=== PATIENT | male | born 1970 | race Caucasian/White ===

== ENCOUNTER 2024-11-18 14:37 | Emergency (ER) | payer OTHER, SELFPAY ==
[2024-11-18 14:49] VITALS: BP 201/93
[2024-11-18 15:00] VITALS: BP 165/91
[2024-11-18 15:21] LABS: % Basophils 0.5 % (0-2); % Eosinophils 1.3 % (0-6); % Immature Granulocytes 0.4 % (0-0.5); % Lymphocytes 21.2 % (20.5-51.1); % Monocytes 4.5 % (1.7-9.3); % Neutrophils 72.1 % (42.2-75.2); Absolute Basophils 0.1 10^3/uL (0-0.2); Absolute Eosinophils 0.2 10^3/uL (0-0.7); Absolute Immature Granulocytes 0.1 10^3/uL (0-0.05); Absolute Lymphocytes 2.7 10^3/uL (1.2-3.4); Absolute Monocytes 0.6 10^3/uL (0.1-0.6); Absolute Neutrophils 9.3 10^3/uL (1.4-6.5); Hematocrit 43.9 % (39.0-52.0); Hemoglobin 14.6 g/dL (13.0-18.0); Mean Corp Hgb Conc. 33.3 g/dL (33.0-37.0); Mean Corpuscular Hgb 31.1 pg (27.0-31.0); Mean Corpuscular Volume 93.4 fL (80.0-94.0); Mean Platelet Volume 9.2 fL (7.4-10.4); Nucleated Red Blood Cells % 0 % (-); Platelet Count 321 10^3/uL (130-400); Red Cell Dist. Width 13.1 % (11.5-14.5); White Blood Cell Count 12.9 10^3/uL (4.8-10.8)
[2024-11-18 15:38] LABS: Blood Urea Nitrogen 26 mg/dl (9-20); Calcium 9.9 mg/dl (8.4-10.2); Carbon Dioxide 24 mmol/L (22-30); Chloride 103 mmol/L (98-107); Glucose 142 mg/dl (70-99); Potassium 4.1 mmol/L (3.5-5.1); Sodium 136 mmol/L (135-145); eGFR > 60.00
[2024-11-18] MEDS: DUONEB 3 ML INH (15:45)
[2024-11-18] MEDS: DECADRON 10 MG IV (15:45)
[2024-11-18 15:47] LABS: Troponin I 0.014 ng/ml
--- NOTE | 2024-11-18 16:09 | ED.GENMED ---
History of Present Illness
General
Chief Complaint: Breathing Problem
Source: patient
Exam Limitations: none
Time Seen by Provider: 11/18/24 15:36
Nursing documentation reviewed up to this point in time: agreed with
History of Present Illness
History of Present Illness:
54-year-old male was cleaning concrete with an acid wash for about an hour developed shortness of breath pressure into his chest some wheezing, felt better when he went outside, no fever chills nondrinker non-smoker no exposure to this medication
before has history of reflux takes omeprazole
Past History
Past History
ED Past Medical History: GERD
Social History
Tobacco: Non-smoker
Alcohol: None
Drug: None
Personal:
Living: with family
Employment: Employed
Review of Systems
Review of Systems
All Other Systems: Not applicable
Constitutional: Denies fever or fatigue
Respiratory: Reports cough and trouble breathing
Cardiac: Reports chest pain and diaphoresis
ABD/GI: Reports no symptoms; Denies abdominal pain or vomiting
Skin: Reports no symptoms
Neurological: Reports no symptoms
Phy Exam
Physical Exam
Physical Exam:
Physical Exam
General: 54 male coughing
Neck: No jaundice
Heart: Regular
Lungs: Wheeze bilaterally
Abdomen: Nontender
Neuro: alert and oriented. no focal neurological deficits
Skin: no rash
Psychiatric: well kept. interactive and cooperative
Extremities: no edema. no calf tenderness.
Scores
Heart Failure Risk
Heart Failure Risk Score: Not Applicable
Course
Orders/Labs/Results
Orders:
Orders
11/18/24 14:40
ECG [Electrocardiogram (*1)] Urgent
Reason for Study: Other
Other Reason for Exam: diaphoretic
EKG- Treatment ONCE
11/18/24 14:54
CR Chest - 2 Views Urgent
Comment:
Reason For Exam: chest tightness
11/18/24 15:11
Basic Metabolic Panel Urgent
Complete Blood Count/With Diff Urgent
Troponin I Urgent
11/18/24 15:40
Dexamethasone Sod Phosphate [Decadron] 10 mg IV NOW STA
Ipratropium/Albuterol Sulfate [Duoneb] 3 ml INH R NOW STA
Abnormal Lab Results
11/18/24
15:11
WBC 12.9 H 10^3/uL
(4.8-10.8)
MCH 31.1 H pg
(27.0-31.0)
Abs Immat Gran (auto) 0.1 H 10^3/uL
(0-0.05)
Absolute Neuts (auto) 9.3 H 10^3/uL
(1.4-6.5)
BUN 26 H mg/dl
(9-20)
Glucose 142 H mg/dl
(70-99)
11/18/24 15:11
11/18/24 15:11
Vital Signs
Initial and Last Documented VS:
Initial Vital Signs
Temp Pulse Resp BP Pulse Ox
98.3 F 78 18 201/93 99
11/18/24 14:49 11/18/24 14:49 11/18/24 14:49 11/18/24 14:49 11/18/24 14:49
Last Documented Vital Signs
Temp Pulse Resp BP Pulse Ox
98.3 F 69 13 165/91 100
11/18/24 14:49 11/18/24 16:00 11/18/24 16:00 11/18/24 15:00 11/18/24 16:00
MDM/Problems Addressed
Differential Diagnosis Includes:
Inhalation injury, bronchitis, doubt ACS
MDM/Problems Addressed:
Cough shortness of breath
*Radiology
Radiology exam reviewed: preliminary read by ED provider
*Pulse Oximetry
Patient hypoxic: no
*EKG
Interpreted by ED Provider?: Yes
Comparison EKG: no comparison EKG present
Heart Rate: 78
Rate: normal
Rhythm: sinus
Ischemia: no ischemia
*Shower Enclosure Installer Interpretation
Rate: normal
Interpretation: normal
Heart Rate: 78
Rhythm: sinus
*Critical Care Note
Total Time (30-74mins, 75-104mins- exclusive of procedures): Not Applicable
Update Note
Update Note:
Update chest x-ray noted labs noted patient feeling better
ED Attending Note
-
Portions of this chart may have been created with voice recognition software.� Occasional wrong word or��sound alike� substitutions may have occurred due to the inherent limitations of voice recognition software.
Discharge Plan
Departure
Patient Disposition: Home (Routine Discharge)
Date of Disposition: 11/18/24
Time of Disposition: 17:33
Patient with high blood pressure during this ER visit?: No
Condition: Good
Discharge Problem:
Inhalation injury due to chemical
Instructions: Acute bronchitis in adults, Smoke Inhalation
Prescriptions:
New
methylprednisolone [Medrol (Gildardo)] 4 mg tablets,dose pack
See Rx Instructions .ROUTE .COMPLEX Qty: 21 0RF
Rx Instructions:
for 6 days
albuterol sulfate 90 mcg/actuation HFA aerosol inhaler
2 inh inhalation QID PRN (Reason: shortness of breath or wheezing) Qty: 8.5 2RF
Referrals:
UNKNOWN - PT DOES,NOT KNOW [Family Provider] -
Activity Restrictions/Additional Instructions:
Albuterol 2 puffs every 4 hours, prednisone pack as prescribed return to the ER for worsening
Interventions
Interventions:
*Risk Screen - Suicide Last Done: 11/18/24 15:09
*General Assessment Last Done: 11/18/24 14:49
*Neglect/Abuse Screening Last Done: 11/18/24 15:09
ED- Fall Risk Assessment Last Done: 11/18/24 15:08
*ED COVID-19 Vaccine History Last Done: 11/18/24 15:09
ED- Cardiac Assessment Last Done: 11/18/24 15:08
ED- Pulmonary Assessment Last Done: 11/18/24 15:08
Discharge Date and Time
Print Language: ANGOLAN
== END 2024-11-18 17:44 | disposition home or self-care (01) ==
LOC: EMR 14:37
PROVIDERS: Emergency Medicine; EMERGENCY PHYSICIAN Emergency Medicine
DX: T59.91XA Toxic effect of unspecified gases, fumes and vapors, accidental (unintentional), initial encounter (principal); Y92.9 Unspecified place or not applicable; K21.9 Gastro-esophageal reflux disease without esophagitis
CPT/HCPCS: 99283; 94640; 96374; 71046; 80048; 84484; 85025; 93005

== ENCOUNTER 2025-05-28 10:09 | Emergency (ER) | payer OTHER, SELFPAY ==
[2025-05-28 10:10] VITALS: BP 160/99
--- NOTE | 2025-05-28 11:37 | ED.GENMED ---
History of Present Illness
General
Chief Complaint: Skin Problem
Source: patient
Exam Limitations: none
Time Seen by Provider: 05/28/25 11:17
Nursing documentation reviewed up to this point in time: agreed with
History of Present Illness
History of Present Illness:
Patient presents to ED secondary to concern for infection in his left forearm. Patient states that 2 days ago, he was out in the backyard, cleaning up branches and leaves, when he felt sharp sting in his left forearm. Patient did not remove any
insects nor did he see one after initial sting. Since then, pain has resolved and has become itchy. However, while he was at home this morning, he suddenly had a sensation of dizziness with nausea, concerned that he may have been bitten by spider
or other insects, causing him to be ill. He has been keeping the wound clean with soap and water, and has been applying Neosporin. Denies swelling. Denies open drainage. Denies redness. Denies previous history of skin infection. Patient's
medical history is significant for MA in 2023, for which he is taking aspirin, Plavix, and Lipitor.
Past History
Past History
ED Past Medical History: GERD
Social History
Tobacco: Non-smoker
Alcohol: None
Drug: None
Personal:
Living: with family
Employment: Employed
Review of Systems
Review of Systems
Allergies reviewed?: Yes
All Other Systems: ROS reviewed and negative except as documented in HPI and ROS
Constitutional: Reports no symptoms; Denies fever or chills
Respiratory: Reports no symptoms
Cardiac: Reports no symptoms
ABD/GI: Reports nausea; Denies abdominal pain or vomiting
Musculoskeletal: Reports no symptoms
Skin: Reports other (forearm punctured wound)
Neurological: Reports dizzy; Denies headache
Phy Exam
Physical Exam
Physical Exam:
Physical Exam
General: no apparent distress, not acutely ill. afebrile
Head: nc/at. eomi
Neck: supple. no meningeal signs
Abdomen: normal bowel sounds. not tender.
Neuro: alert and oriented x 3. no focal neurological deficits
Skin: punctured wound noted on mid-forearm along volar surface, without warmth/tenderness/erythema.
Psychiatric: well kept. interactive and cooperative
Extremities: no edema. no calf tenderness.
Course
Vital Signs
Initial and Last Documented VS:
Initial Vital Signs
Temp Pulse Resp BP Pulse Ox
97.5 F 71 16 160/99 98
05/28/25 10:10 05/28/25 10:10 05/28/25 10:10 05/28/25 10:10 05/28/25 10:10
Last Documented Vital Signs
Temp Pulse Resp BP Pulse Ox
97.5 F 71 16 160/99 98
05/28/25 10:10 05/28/25 10:10 05/28/25 10:10 05/28/25 10:10 05/28/25 11:38
MDM/Problems Addressed
MDM/Problems Addressed:
History and exam consistent with nonspecific local excellent response from unknown insect bite. No evidence of infection at this time. As such, after discussion, decision made to provide patient with prescription for antibiotic, i.e. Keflex, to
consider to be started, if symptoms do not improve or worsen over the next 24 to 48 hours. In the meantime, recommended calling his primary care physician for reevaluation this week. Patient also advised to return to ED for reevaluation, with
significant worsening symptoms. Patient expressed understanding at time of discharge. Patient otherwise is afebrile, hemodynamically stable, and nontoxic-appearing. Patient reports resolution of presenting nausea and dizziness sensation, upon
arrival in ED.
*Pulse Oximetry
SaO2: 98
Oxygen Mode of Delivery: Room air
Patient hypoxic: no
*Critical Care Note
Total Time (30-74mins, 75-104mins- exclusive of procedures): Not Applicable
ED Attending Note
-
Portions of this chart may have been created with voice recognition software.� Occasional wrong word or��sound alike� substitutions may have occurred due to the inherent limitations of voice recognition software.
Discharge Plan
Departure
Patient Disposition: Home (Routine Discharge)
Date of Disposition: 05/28/25
Time of Disposition: 11:46
Patient with high blood pressure during this ER visit?: Yes
Condition: Good
Discharge Problem:
Insect bite
Instructions: Insect bites and stings - ED discharge instructions
Prescriptions:
New
cephalexin 500 mg capsule
500 mg PO QID Qty: 20 0RF
No Action
methylprednisolone [Medrol (Gildardo)] 4 mg tablets,dose pack
See Rx Instructions .ROUTE .COMPLEX Qty: 21 0RF
Rx Instructions:
for 6 days
albuterol sulfate 90 mcg/actuation HFA aerosol inhaler
2 inh inhalation QID PRN (Reason: shortness of breath or wheezing) Qty: 8.5 2RF
Referrals:
Diane Kaba CRNP [Family Provider, Family Practice]
Activity Restrictions/Additional Instructions:
As discussed, please follow-up with your primary care physician for reevaluation. Please consider return to ED with worsening symptoms.
Interventions
Interventions:
*Risk Screen - Suicide Last Done: 05/28/25 10:12
*General Assessment Last Done: 05/28/25 11:27
*Neglect/Abuse Screening Last Done: 05/28/25 10:12
*ED- Fall Risk Assessment Last Done: 05/28/25 11:27
*ED COVID-19 Vaccine History Last Done: 05/28/25 11:27
*Nursing Disposition Last Done: 05/28/25 12:04
ED-Skin Assessment Last Done: 05/28/25 11:26
Discharge Date and Time
Discharge Date/Time: 05/28/25 12:04
Print Language: SAMMARINESE
== END 2025-05-28 12:04 | disposition home or self-care (01) ==
LOC: EMR 10:09
PROVIDERS: EMERGENCY PHYSICIAN Emergency Medicine; FAMILY PHYSICIAN Nurse Practitioner Family
DX: S51.832A Puncture wound without foreign body of left forearm, initial encounter (principal); R42 Dizziness and giddiness; R11.0 Nausea; W57.XXXA Bitten or stung by nonvenomous insect and other nonvenomous arthropods, initial encounter; R03.0 Elevated blood-pressure reading, without diagnosis of hypertension; K21.9 Gastro-esophageal reflux disease without esophagitis; I25.2 Old myocardial infarction; Z79.82 Long term (current) use of aspirin; Z79.02 Long term (current) use of antithrombotics/antiplatelets; Z88.1 Allergy status to other antibiotic agents; Z88.2 Allergy status to sulfonamides
CPT/HCPCS: 99283